=== PATIENT | male | born 1980 | race Caucasian/White ===

== ENCOUNTER → 2020-03-29 12:27 | Outpatient (BNVA) | payer OTHER, SELFPAY | PROVIDERS: Family Provider Family Medicine; PCP Family Medicine; Visit Provider Family Medicine | DX: Z20.828 Contact with and (suspected) exposure to other viral communicable diseases (principal) | CPT/HCPCS: 87635 ==

== ENCOUNTER → 2020-06-28 09:44 | Outpatient (BNVA) | payer OTHER, SELFPAY | PROVIDERS: Family Provider Family Medicine; PCP Family Medicine; Visit Provider Family Medicine | DX: Z20.828 Contact with and (suspected) exposure to other viral communicable diseases (principal) | CPT/HCPCS: 87635 ==

== ENCOUNTER → 2021-03-26 11:02 | Outpatient (BNVA) | payer OTHER, SELFPAY | PROVIDERS: Family Provider Family Medicine; PCP Family Medicine; Referring Provider Nurse Practitioner; Visit Provider Specialist | DX: S83.207A Unspecified tear of unspecified meniscus, current injury, left knee, initial encounter (principal); X58.XXXA Exposure to other specified factors, initial encounter | CPT/HCPCS: 73560; 73565 ==

== ENCOUNTER 2021-04-15 07:35 | Outpatient (CLI) | payer OTHER, SELFPAY ==
--- NOTE | 2021-04-15 08:00 | MR_ITS ---
WS: [id number] MRI LEFT KNEE HISTORY: LEFT injury 10 years ago. Increasing pain and locking. COMPARISON: 03/26/2021 Anterior cruciate ligament: Intact. Posterior cruciate ligament: Intact. Medial collateral ligament: Intact. Posterior lateral corner structures: Intact. Medial menisci: Anterior horn is normal. Abnormal signal with mild blunting and fraying along the mar gins of the posterior meniscus. Seen best on the coronal imaging is a subtle area of increased signal towards the meniscal root. Abnormal shape of the meniscal root. Lateral meniscus: Intact. Normal signal, size and shape. Extensor mechanism: Distal quadriceps tendon and patellar tendons are intact. Fluid and soft tissue: No significant joint effusion. No soft tissue edema. No Olivas's cyst. Osseous and articular structures: Patellofemoral compartment: Normal. Medial compartment: Very minimal narrowing medial compartment. There is abnormal signal towards the i ntercondylar notch involving the posterior meniscus and the cartilage. Moderate fraying and fissuring and small defects within the cartilage along the weightbearing surface of the femoral condyle. Lesse r fraying along the tibial plateau. No underlying marrow edema. Width of the cartilage and meniscal abnormality is 1.6 cm. Lateral compartment: Minimal fraying along the surface of the cartilage. No marrow edema. MR/MR knee LT wo con* [id number] IMPRESSION: 1. Meniscal and cartilage tears and fraying involving the posterior horn media l meniscus towards the intercondylar notch. Combination of cartilage and menisc al abnormality measures 1.6 cm in diameter. 2. No marrow edema. 3. No loose body identified.
== END 2021-04-15 07:36 | disposition home or self-care (01) ==
LOC: RADSHAW 07:39
PROVIDERS: PCP Family Medicine; Visit Provider Specialist
DX: S83.207A Unspecified tear of unspecified meniscus, current injury, left knee, initial encounter (principal); X58.XXXA Exposure to other specified factors, initial encounter
CPT/HCPCS: 73721

== ENCOUNTER → 2024-09-28 17:56 | Outpatient (BNVA) | payer OTHER, SELFPAY | PROVIDERS: PCP Family Medicine | DX: R52 Pain, unspecified (principal) | CPT/HCPCS: 87400 ==

== ENCOUNTER → 2025-03-16 10:10 | Outpatient (BNVA) | payer OTHER, SELFPAY | PROVIDERS: PCP Family Medicine; Visit Provider Nurse Practitioner | DX: R05.9 Cough, unspecified (principal) | CPT/HCPCS: 87426 ==

== ENCOUNTER → 2025-04-02 07:43 | Outpatient (BNVA) | payer OTHER, SELFPAY | PROVIDERS: PCP Family Medicine; Referring Provider Nurse Practitioner; Visit Provider Internal Medicine | DX: E05.90 Thyrotoxicosis, unspecified without thyrotoxic crisis or storm (principal); R53.83 Other fatigue | CPT/HCPCS: 99204 ==

== ENCOUNTER 2025-04-09 08:38 | Outpatient (CLI) | payer OTHER, SELFPAY ==
[2025-04-09 10:25] LABS: Free T4 Free Thyroxine 1.28 ng/dL (0.82-1.77); Thyroid Stimulating Hormone 0.45 uIU/mL (0.27-4.20)
== END 2025-04-09 08:39 | disposition home or self-care (01) ==
LOC: LAB 08:41
PROVIDERS: PCP Family Medicine; Visit Provider Internal Medicine
DX: E05.90 Thyrotoxicosis, unspecified without thyrotoxic crisis or storm (principal); R53.83 Other fatigue
CPT/HCPCS: 36415; 83516; 84403; 84439; 84443; 84480; 86376; 86800

== ENCOUNTER 2025-04-17 07:41 | Outpatient (CLI) | payer OTHER, SELFPAY ==
[2025-04-17 08:08] LABS: Hematocrit 43.2 % (37-53); Hemoglobin 15.20 g/dL (11.27-16.99); Mean Corpuscular HGB Conc 35.2 g/dL (30-55); Mean Corpuscular Hemoglobin 31.7 pg (27-33); Mean Corpuscular Volume 90.0 fl (82-101); Nucleated Red Blood Cells % 0 %; Platelet Count 310 10^3/cmm (157-399); Red Blood Count 4.80 10^6/uL (3.85-5.65); White Blood Count 9.56 10^3/uL (3.29-11.43)
[2025-04-17 08:35] LABS: Alanine Aminotransferase 26 U/L (0-41); Albumin Level 4.5 g/dL (3.5-5.2); Alkaline Phosphatase 81 U/L (40-130); Anion Gap 16.5 (5-19); Blood Urea Nitrogen 23 mg/dL (6-20); Calcium 9.3 mg/dL (8.5-10.5); Carbon Dioxide 26 mmol/L (22-29); Chloride 100 mmol/L (98-107); Cholesterol 136 mg/dL (0-200); Follicle Stimulating Hormone 3.7 mIU/mL (1.5-12.4); Globulin 2.8 g/dL (1.3-4.6); Glucose 139 mg/dL (65-115); HDL Cholesterol 39 mg/dL (60-100); Osmolality Calculated 294 mOsm/kg (285-295); Potassium 3.5 mmol/L (3.5-5.1); Sodium 139 mmol/L (136-145); Total Protein 7.3 g/dL (6.6-8.7); Triglycerides 149 mg/dL (0-150)
[2025-04-17 08:42] LABS: Aspartate Amino Transferase 22 U/L (0-40)
== END 2025-04-17 07:42 | disposition home or self-care (01) ==
LOC: LAB 07:43
PROVIDERS: PCP Family Medicine; Visit Provider Internal Medicine
DX: R53.83 Other fatigue (principal); E05.90 Thyrotoxicosis, unspecified without thyrotoxic crisis or storm; R79.89 Other specified abnormal findings of blood chemistry; Z12.5 Encounter for screening for malignant neoplasm of prostate
CPT/HCPCS: 36415; 80053; 80061; 83001; 83002; 84403; 85025; G0103